=== PATIENT | female | born 1950 | race Caucasian/White ===

== ENCOUNTER 2019-01-27 13:29 | Emergency (ER) | payer MEDICARE ==
[2019-01-27 14:55] VITALS: BP 133/71
--- NOTE | 2019-01-27 15:15 | UC ---
Skin Complaint HPI - HPI Summary HPI Summary: 60-year-old female presents with complaints of tender area of redness to her right antecubital that has been progressively getting larger in size over the past 5 days. States it initially started as a small pinpoint area of redness and tenderness to her antecubital and thought it was an insect bite but states the redness has continued to spread and become more tender. Denies fever, chills, malaise, joint pain or swelling. - History of Current Complaint Chief Complaint: UCRash Time Seen by Provider: 01/27/19 14:47 Stated Complaint: BITE(?) ON RT ARM Hx Obtained From: Patient Pain Intensity: 5 - Allergy/Home Medications Allergies/Adverse Reactions: Allergies Allergy/AdvReac Type Severity Reaction Status Date / Time codeine Allergy Hallucinati Verified 01/27/19 14:56 ons Estrogens Allergy sever BP Verified 01/27/19 14:56 drop and fall Home Medications: Home Medications Mirabegron [Myrbetriq] 25 mg PO QAM 01/27/19 [History Confirmed 01/27/19] Oxybutinin 5 mg PO TID 01/27/19 [History Confirmed 01/27/19] PMH/Surg Hx/FS Hx/Imm Hx GI/ History: Gastroesophageal Reflux, Other - OAB - Surgical History Surgical History: Yes Surgery Procedure, Year, and Place: pelvic surgeries - many - Social History Alcohol Use: Occasionally Substance Use Type: None Smoking Status (MU): Former Smoker When Did the Patient Quit Smoking/Using Tobacco: 1983 - Immunization History Most Recent Tetanus Shot: 2017 Review of Systems All Other Systems Reviewed And Are Negative: Yes Constitutional: Negative: Fever, Chills Skin: Positive: Other - See HPI Respiratory: Positive: Negative Cardiovascular: Positive: Negative Gastrointestinal: Positive: Negative Genitourinary: Positive: Negative Musculoskeletal: Negative: Arthralgia, Decreased ROM Neurological: Positive: Negative Is Patient Immunocompromised?: No Physical Exam - Summary Physical Exam Summary: GENERAL APPEARANCE: Well developed, well nourished, alert and cooperative, and appears to be in no acute distress. CARDIAC: Normal S1 and S2. No S3, S4 or murmurs. Rhythm is regular. There is no peripheral edema, cyanosis or pallor. Extremities are warm and well perfused. Capillary refill is less than 2 seconds. Peripheral pulses intact. LUNGS: Clear to auscultation without rales, rhonchi, wheezing or diminished breath sounds. ABDOMEN: Positive bowel sounds. Soft, nondistended, nontender. No guarding or rebound. No masses or hepatosplenomegally. MUSKULOSKELETAL: ROM intact to all extremities. No joint erythema or tenderness. Normal muscular development. Normal gait. EXTREMITIES: 12 cm x 9 cm area of erythema with tenderness, central induration without fluctuance, and increased warmth to the right antecubital. SKIN: Skin normal color, texture and turgor. Triage Information Reviewed: Yes Vital Signs: Initial Vital Signs Temp 100.1 F 01/27/19 14:49 Pulse 81 01/27/19 14:49 Resp 20 01/27/19 14:49 BP 133/71 01/27/19 14:49 Pulse Ox 98 01/27/19 14:49 Vital Signs Reviewed: Yes Images Front/Back of Body, Lg (Otero): 1 - 12 cm x 9 cm area of erythema with tenderness, central induration without fluctuance, and increased warmth. Course/Dx - Course Course Of Treatment: 60-year-old female presents with complaints of tender area of redness to her right antecubital that has been progressively getting larger in size over the past 5 days. States it initially started as a small pinpoint area of redness and tenderness to her antecubital and thought it was an insect bite but states the redness has continued to spread and become more tender. Denies fever, chills, malaise, joint pain or swelling. Mildly elevated temperature of 100.1 F. Vital signs were otherwise stable. Patient was well appearing in no acute distress. She had a 12 cm x 9 cm area of erythema with tenderness, central induration without fluctuance, and increased warmth to the right antecubital and otherwise unremarkable exam. Discussed with patient that her symptoms are consistent with cellulitis. Will start her on Bactrim DS 1 tablet twice daily 7 days to treat for the infection. The margins of the redness were marked with a skin pen and patient was given instructions on monitoring her symptoms. Recommending [id number] analgesics as needed for pain. She is to follow- up with her primary care provider in 3 days for recheck of symptoms. Anticipatory guidance and warning symptoms requiring immediate evaluation in the emergency room were reviewed with the patient. Verbalizes understanding and agrees with plan of care. - Differential Diagnoses - Skin Complaint Differential Diagnoses: Cellulitis, Contact Dermatitis, Local Allergic Reaction , MRSA, Systemic Illness - Diagnoses Provider Diagnosis: Cellulitis of right arm Discharge ED - Sign-Out/Discharge Documenting (check all that apply): Patient Departure All imaging exams completed and their final reports reviewed: No Studies - Discharge Plan Condition: Stable Disposition: HOME Prescriptions: Sulfamethox/Trimethoprim DS* [Bactrim DS 800/160 TAB*] 1 tab PO BID #14 tab Patient Education Materials: Cellulitis (ED) Referrals: Alex Gonzalez MD [Primary Care Provider] - 3 Days Additional Instructions: You appear to have an infection of the skin called cellulitis. We will start you on an antibiotic to treat for the infection. Take Bactrim DS one tablet twice a day for the next 7 days. Be sure to finish the entire course even if you are feeling better. Use [id number] acetaminophen (Tylenol) or ibuprofen (Advil, Motrin) according to directions as needed for pain. Follow-up with your primary care provider in 3 days for recheck of your symptoms. Seek immediate medical attention in the emergency room if you develop a fever greater than 100.5 F, the redness rapid spreads, you develop red streaking up the arm, severe pain that is not managed with acetaminophen or ibuprofen, swelling of the arm, chest pain, shortness of breath, or any worsening of symptoms. - Billing Disposition and Condition Condition: STABLE Disposition: Home
== END 2019-01-27 15:32 | disposition home or self-care (01) ==
LOC: UCCORT 13:29
DX: L03.113 Cellulitis of right upper limb (principal); Z88.5 Allergy status to narcotic agent; Z88.8 Allergy status to other drugs, medicaments and biological substances; Z87.891 Personal history of nicotine dependence
CPT/HCPCS: 99202; G0463